=== PATIENT | male | born 1985 | race Caucasian/White ===

== ENCOUNTER 2018-06-07 16:39 | Emergency (ER) | payer OTHER ==
[~2018-06-07] VITALS: Ht 152.4 cm; Wt 70.3 kg
[~2018-06-07 16:39] MED LIST: PANT40TA2 PO
--- NOTE | 2018-06-07 17:23 | NUR ---
PT PRESENTED TO THE ER WITH A C/O ABD PAIN, N/V MULT TIMES TODAY, AND DIARRHEA X 1 DAY. PT'S FAMILY MEMBER IS AT THE BEDSIDE. 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 PT IS ON [place] MONITOR AND CONTINUOUS PULSE OX.
[2018-06-07] MEDS ORDERED: FAMOTIDINE/PF INJ 20 MG/2 ML VIAL IV ONE ×2 (17:30→17:40)
[2018-06-07] MEDS ORDERED: KETOROLAC TROMETHAMINE INJ 30 MG/ML VIAL IV ONE (17:30)
[2018-06-07] MEDS ORDERED: ONDANSETRON HCL/PF 4 MG/2 ML VIAL IVP ONE (17:30)
[2018-06-07] MEDS ORDERED: MORPHINE SULFATE INJ 2 MG/ML DISP.SYRIN IV ONE (17:30)
[2018-06-07] MEDS ORDERED: IV NS 0.9% 1,000 ML BAG IV ONE (17:30)
[2018-06-07 17:40] LABS: BASOPHILS % (AUTO) 0.5 % (0.0-2.0); EOSINOPHILS % (AUTO) 0.5 % (0.0-6.0); HEMATOCRIT 44 % (39-51); HEMOGLOBIN 14.7 g/dL (13.5-17.5); LYMPHOCYTES # (AUTO) 1.1 /CMM (0.8-4.8); LYMPHOCYTES % (AUTO) 12.4 % (20.0-44.0); MEAN CORPUSCULAR HGB CONC 33 g/dl (31.0-36.0); MEAN CORPUSCULAR VOLUME 89 fL (80-96); MONOCYTES # (AUTO) 0.7 /CMM (0.1-1.30); NEUTROPHILS # (AUTO) 7.1 /CMM (1.8-8.9); NEUTROPHILS % (AUTO) 78.6 % (43.0-81.0); PLATELET COUNT (AUTO) 294 /CMM (150-450); RED BLOOD CELL COUNT(AUTO) 5.01 MIL/uL (4.5-6.0)
[2018-06-07] MEDS ORDERED: ONDANSETRON HCL/PF 4 MG/2 ML VIAL ONE (17:40)
[2018-06-07] MEDS ORDERED: KETOROLAC TROMETHAMINE 15 MG/ML VIAL ONE (17:40)
[2018-06-07] MEDS ORDERED: MORPHINE SULFATE INJ 4 MG/ML DISP.SYRIN ONE (17:40)
[2018-06-07 17:47] LABS: CALCIUM, SERUM 9.4 mg/dL (8.5-10.1); POTASSIUM 3.4 mmol/L (3.5-5.1)
[2018-06-07 17:53] LABS: ALBUMIN 4.3 g/dL (3.4-5.0); BILIRUBIN,DIRECT 0.2 mg/dL (0.0-0.2); BILIRUBIN,TOTAL 0.8 mg/dL (0.2-1.0); TOTAL PROTEIN, SERUM 7.5 g/dL (6.4-8.2)
--- NOTE | 2018-06-07 18:19 | NUR ---
PT REC'D A URINAL AND IS TRYING TO GIVE A SAMPLE.
--- NOTE | 2018-06-07 18:25 | NUR ---
Albert SULTANA PA-C IS AT THE BEDSIDE SPEAKING TO THE PT.
--- NOTE | 2018-06-07 18:36 | NUR ---
IV removed. Catheter intact and site benign. Pressure and 4x4 applied to site. No bleeding noted. Patient discharged to home in stable condition. Written and verbal after care instructions given. Patient verbalizes understanding of instruction. PT REC'D AN EXCUSE FOR WORK. PT AMBULATED OUT WITH A STEADY GAIT. VSS. PT'S FAMILY MEMBER IS DRIVING PT HOME.
[2018-06-07 18:38] VITALS: BP 124/71
== END 2018-06-07 18:39 | disposition home or self-care (01) ==
LOC: ER 16:47
DX: K27.9 Peptic ulcer, site unspecified, unspecified as acute or chronic, without hemorrhage or perforation (principal); R10.13 Epigastric pain; R11.2 Nausea with vomiting, unspecified
CPT/HCPCS: 36415; 80048; 80076; 83690; 85025; 96361; 96374; 96375; 99283; A4606; J1885; J2270; J2405; J3490; J7030; Z7610

== ENCOUNTER 2018-07-22 02:29 | Emergency (ER) | payer OTHER ==
[~2018-07-22] VITALS: Ht 180.3 cm; Wt 70.3 kg
--- NOTE | 2018-07-22 02:57 | NUR ---
PT BIBSELF C/O LEFT UPPER ABDOMINAL PAIN X4 DAYS. ALSO C/O NAUSEA AND VOMITTING. PT DENIES SOB, CHEST PAIN, HEADACHE, DIZZINESS, FEVER. PT AAOX4. RESPIRATIONS EVEN AND UNLABORED. SKIN WARM AND INTACT. PT APPEARS UNCOMFORTABLE. PLACED ON MONTIOR, WILL CONTINUE TO MONITOR
[2018-07-22] MEDS ORDERED: MAG HYDROX/AL HYDROX/SIMETH 30 ML UDC PO ONE (03:30)
[2018-07-22] MEDS ORDERED: LIDOCAINE VISCOUS 2% UD 15 ML UDC MM ONE (03:30)
[2018-07-22] MEDS ORDERED: IV NS 0.9% 1,000 ML BAG IV ONE ×2 (03:30→05:00)
[2018-07-22] MEDS ORDERED: ONDANSETRON HCL/PF 4 MG/2 ML VIAL IVP ONE (03:30)
[2018-07-22] MEDS ORDERED: FAMOTIDINE/PF INJ 20 MG/2 ML VIAL IV ONE ×2 (03:30→03:40)
--- NOTE | 2018-07-22 03:32 | NUR ---
IV INITIATED RIGHT AC 18G. LABS DRAWN FROM SITE. CHOIRMASTER AT BEDSIDE FOR COLLECTION. IV INTACT AND PATENT, PLACED ON SALINE LOCK
[2018-07-22 03:36] LABS: BASOPHILS % (AUTO) 0.2 % (0.0-2.0); EOSINOPHILS % (AUTO) 0.3 % (0.0-6.0); HEMATOCRIT 48 % (39-51); HEMOGLOBIN 16.1 g/dL (13.5-17.5); LYMPHOCYTES # (AUTO) 0.9 /CMM (0.8-4.8); LYMPHOCYTES % (AUTO) 8.3 % (20.0-44.0); MEAN CORPUSCULAR HGB CONC 34 g/dl (31.0-36.0); MEAN CORPUSCULAR VOLUME 87 fL (80-96); MONOCYTES % (AUTO) 8.5 % (2.0-12.0); NEUTROPHILS # (AUTO) 9.4 /CMM (1.8-8.9); NEUTROPHILS % (AUTO) 82.7 % (43.0-81.0); PLATELET COUNT (AUTO) 300 /CMM (150-450); RED BLOOD CELL COUNT(AUTO) 5.46 MIL/uL (4.5-6.0); WHITE BLOOD COUNT (AUTO) 11.4 K/uL (4.3-11.0)
[2018-07-22] MEDS ORDERED: LIDOCAINE VISCOUS 2% UD 15 ML UDC ONE (03:40)
[2018-07-22] MEDS ORDERED: ONDANSETRON HCL/PF 4 MG/2 ML VIAL ONE ×2 (03:40→04:24)
[2018-07-22] MEDS ORDERED: MAG HYDROX/AL HYDROX/SIMETH 30 ML UDC ONE (03:40)
[2018-07-22 03:46] LABS: CALCIUM, SERUM 10.1 mg/dL (8.5-10.1); CREATININE 1.2 mg/dL (0.6-1.3); POTASSIUM 3.8 mmol/L (3.5-5.1)
[2018-07-22 03:52] LABS: ALBUMIN 4.5 g/dL (3.4-5.0); BILIRUBIN,DIRECT 0.1 mg/dL (0.0-0.2); BILIRUBIN,TOTAL 0.6 mg/dL (0.2-1.0); TOTAL PROTEIN, SERUM 8.4 g/dL (6.4-8.2)
[2018-07-22] MEDS ORDERED: LORAZEPAM INJ 2 MG/ML VIAL ONE (03:54)
[2018-07-22] MEDS ORDERED: LORAZEPAM INJ 2 MG/ML VIAL IV ONE (04:00)
[2018-07-22] MEDS ORDERED: ONDANSETRON HCL/PF - ER 4 MG/2 ML VIAL IV ONE (04:30)
[2018-07-22] MEDS ORDERED: IOHEXOL-300 100 ML VIAL IV ONE (04:50)
[2018-07-22] MEDS ORDERED: IV NS 0.9% 250 ML IV ONE (04:51)
[2018-07-22] MEDS ORDERED: CT SWABBABLE VALVE TRANS SET 1 EA INFUS.SET MC ONE (04:51)
[2018-07-22] MEDS ORDERED: METOCLOPRAMIDE HCL 10 MG/2 ML VIAL ONE (05:17)
[2018-07-22] MEDS ORDERED: METOCLOPRAMIDE HCL 10 MG/2 ML VIAL IV ONE (05:30)
--- NOTE | 2018-07-22 05:45 | NUR ---
PT RETURNED FROM CT
--- NOTE | 2018-07-22 07:11 | NUR ---
SPOKE WITH SALUD FROM [facility], STATES SHE WILL CALL BACK WITH TRANSFER INFORMATION
--- NOTE | 2018-07-22 07:32 | NUR ---
Patient discharged to home in stable condition. Written and verbal after care instructions given. Patient verbalizes understanding of instruction. IV removed. Catheter intact and site benign. Pressure and 4x4 applied to site. No bleeding noted. Pt ambulatory with steady gait
[2018-07-22 07:34] VITALS: BP 139/86
== END 2018-07-22 07:35 | disposition home or self-care (01) ==
LOC: ER 02:31
DX: R11.2 Nausea with vomiting, unspecified (principal); R10.13 Epigastric pain
CPT/HCPCS: 36415; 74177; 80048; 80076; 83690; 85025; 96361; 96374; 96375; 96376; 99284; A4606; J2060; J2405 ×3; J2765; J3490; J7030 ×2; J7050; Q9967

== ENCOUNTER 2018-08-24 16:19 | Emergency (ER) | payer OTHER ==
[~2018-08-24] VITALS: Ht 180.3 cm; Wt 69.4 kg
--- NOTE | 2018-08-24 16:20 | NUR ---
CAME IN FOR ABDOMINAL PAIN AND VOMITING X 3 TODAY. TO ER BED 2, HOOKED TO MONITOR, CHANGED TO GOWN, PROVIDED W WARM BLANKET, AWAITING MD TAM.
--- NOTE | 2018-08-24 16:35 | NUR ---
DR REZA AT BEDSIDE
[2018-08-24] MEDS ORDERED: HALOPERIDOL LACTATE INJ 5 MG/ML VIAL ONE (16:47)
[2018-08-24] MEDS ORDERED: MAG HYDROX/AL HYDROX/SIMETH 30 ML UDC ONE (16:48)
[2018-08-24] MEDS ORDERED: LIDOCAINE VISCOUS 2% UD 15 ML UDC ONE (16:48)
[2018-08-24] MEDS ORDERED: ONDANSETRON 4 MG TAB.RAPDIS ONE (16:48)
[2018-08-24 16:49] LABS: BASOPHILS % (AUTO) 0.5 % (0.0-2.0); EOSINOPHILS % (AUTO) 0.6 % (0.0-6.0); HEMATOCRIT 50 % (39-51); HEMOGLOBIN 16.8 g/dL (13.5-17.5); LYMPHOCYTES # (AUTO) 1.6 /CMM (0.8-4.8); LYMPHOCYTES % (AUTO) 18.7 % (20.0-44.0); MEAN CORPUSCULAR HGB CONC 34 g/dl (31.0-36.0); MEAN CORPUSCULAR VOLUME 89 fL (80-96); MONOCYTES # (AUTO) 0.8 /CMM (0.1-1.30); NEUTROPHILS # (AUTO) 5.8 /CMM (1.8-8.9); NEUTROPHILS % (AUTO) 70.2 % (43.0-81.0); PLATELET COUNT (AUTO) 348 /CMM (150-450); RED BLOOD CELL COUNT(AUTO) 5.61 MIL/uL (4.5-6.0); WHITE BLOOD COUNT (AUTO) 8.3 K/uL (4.3-11.0)
[2018-08-24] MEDS ORDERED: ONDANSETRON 4 MG TAB.RAPDIS SL ONE (17:00)
[2018-08-24] MEDS ORDERED: LIDOCAINE VISCOUS 2% UD 15 ML UDC MM ONE (17:00)
[2018-08-24] MEDS ORDERED: HALOPERIDOL LACTATE INJ 5 MG/ML VIAL IM ONE (17:00)
[2018-08-24] MEDS ORDERED: MAG HYDROX/AL HYDROX/SIMETH 30 ML UDC PO ONE (17:00)
[2018-08-24 17:02] LABS: CALCIUM, SERUM 9.6 mg/dL (8.5-10.1); CREATININE 1.2 mg/dL (0.6-1.3); POTASSIUM 4.1 mmol/L (3.5-5.1)
[2018-08-24 17:09] LABS: ALBUMIN 5.1 g/dL (3.4-5.0); BILIRUBIN,DIRECT 0.1 mg/dL (0.0-0.2); BILIRUBIN,TOTAL 0.6 mg/dL (0.2-1.0); TOTAL PROTEIN, SERUM 9.1 g/dL (6.4-8.2)
--- NOTE | 2018-08-24 17:38 | NUR ---
IV removed. Catheter intact and site benign. Pressure and 4x4 applied to site. No bleeding noted.Patient discharged to home in stable condition. Written and verbal after care instructions given. Patient verbalizes understanding of instruction.
[2018-08-24 17:42] VITALS: BP 120/68
== END 2018-08-24 17:43 | disposition home or self-care (01) ==
LOC: ER 16:22
DX: R10.13 Epigastric pain (principal); R11.2 Nausea with vomiting, unspecified
CPT/HCPCS: 36415; 80048; 80076; 83690; 85025; 96372; 99283; J1630; Q0162

== ENCOUNTER 2022-06-13 11:47 | Emergency (ER) | payer OTHER ==
[~2022-06-13] VITALS: Ht 180.3 cm; Wt 90.7 kg
--- NOTE | 2022-06-13 12:33 | NUR ---
PT WALKED INTO ER C/O ABDOMINAL PAIN WITH NAUSEA AND VOMITING "ON AND OFF" X 2 WEEKS. PT AMBULATED TO BED WITH STEADY GAIT. AAOX4. VSS. AWAITING MD ORDERS.
--- NOTE | 2022-06-13 12:35 | NUR ---
ESTABLISHED IV ACCESS 18G LEFT AC. BLOOD DRAWN SENT TO LAB.
[2022-06-13] MEDS ORDERED: ONDANSETRON HCL/PF 4 MG/2 ML VIAL ONE (12:48)
--- NOTE | 2022-06-13 12:57 | NUR ---
TAKEN TO CT VIA DANIS
[2022-06-13] MEDS ORDERED: ONDANSETRON HCL/PF 4 MG/2 ML VIAL IVP ONE (13:00)
[2022-06-13] MEDS ORDERED: IV NS 0.9% 1,000 ML BAG IV ONE (13:00)
[2022-06-13 13:02] LABS: BASOPHILS % (AUTO) 0.4 % (0.0-2.0); HEMATOCRIT 44 % (39-51); HEMOGLOBIN 14.4 g/dL (13.5-17.5); LYMPHOCYTES # (AUTO) 1.3 K/uL (0.8-4.8); LYMPHOCYTES % (AUTO) 16.5 % (20.0-44.0); MEAN CORPUSCULAR HGB CONC 33 g/dl (31.0-36.0); MEAN CORPUSCULAR VOLUME 89 fL (80-96); MONOCYTES # (AUTO) 0.5 K/uL (0.1-1.30); MONOCYTES % (AUTO) 6.1 % (2.0-12.0); NEUTROPHILS # (AUTO) 5.8 K/uL (1.8-8.9); PLATELET COUNT (AUTO) 320 K/uL (150-450); WHITE BLOOD COUNT (AUTO) 7.7 K/uL (4.3-11.0)
--- NOTE | 2022-06-13 13:05 | NUR ---
PT AMBULATED TO REST ROOM TO GIVE URINE SAMPLE.
--- NOTE | 2022-06-13 13:09 | NUR ---
URINE SAMPLE COLLECTED AND SENT TO LAB.
[2022-06-13 13:21] LABS: CALCIUM, SERUM 9.3 mg/dL (8.5-10.1); CREATININE 1.1 mg/dL (0.6-1.3); POTASSIUM 3.3 mmol/L (3.5-5.1)
[2022-06-13 13:27] LABS: ALBUMIN 4.2 g/dL (3.4-5.0); BILIRUBIN,DIRECT 0.1 mg/dL (0.0-0.2); BILIRUBIN,TOTAL 0.4 mg/dL (0.2-1.0); TOTAL PROTEIN, SERUM 7.5 g/dL (6.4-8.2)
--- NOTE | 2022-06-13 13:46 | NUR ---
PT STATES "I FEEL MUCH BETTER. NO MORE NAUSEA."
[2022-06-13] MEDS ORDERED: ONDA4TAB5 PO (13:53)
--- NOTE | 2022-06-13 14:05 | NUR ---
Patient discharged to home in stable condition. Written and verbal after care instructions given. Patient verbalizes understanding of instruction.IV removed. Catheter intact and site benign. Pressure and 4x4 applied to site. No bleeding noted.
[2022-06-13 14:12] VITALS: BP 120/77
[2022-06-13 14:38] LABS: BILIRUBIN,URINE NEGATIVE (NEGATIVE); COLOR,URINE YELLOW (YELLOW); LEUKOCYTE ESTERASE ,URINE NEGATIVE (NEGATIVE); NITRITE, URINE NEGATIVE (NEGATIVE); PROTEIN,URINE NEGATIVE (NEGATIVE); UGLUCOSE NEGATIVE (NEGATIVE); UROBILINOGEN,URINE 0.2 EU/dL (0.2)
== END 2022-06-13 14:12 | disposition home or self-care (01) ==
LOC: ER 11:48
DX: R11.2 Nausea with vomiting, unspecified (principal); F17.200 Nicotine dependence, unspecified, uncomplicated; Z79.899 Other long term (current) drug therapy
CPT/HCPCS: 99285; 74176; 96374; 96361; 85025; 80048; 83690; 80076; 81003; 36415; J2405; J7030

== ENCOUNTER 2023-01-03 00:11 | Emergency (ER) | payer OTHER ==
[~2023-01-03] VITALS: Ht 180.3 cm; Wt 68.0 kg
[~2023-01-03 00:11] MED LIST changes: +ONDA4TAB5 PO
[2023-01-03] MEDS ORDERED: FLUORESCEIN SODIUM OPHTH 1 EA STRIP ONE (00:32)
[2023-01-03 00:34] VITALS: BP 123/76; TEMP 98.2; O2SAT 98
[2023-01-03] MEDS ORDERED: ERYT3.5O9 EACHEYE (00:49)
[2023-01-03] MEDS ORDERED: MORP15TA PO (00:49)
[2023-01-03] MEDS ORDERED: NABU-141 PO (00:49)
[2023-01-03] MEDS ORDERED: HYDROCODONE/APAP 5/325MG TABLET ONE (00:54)
[2023-01-03] MEDS ORDERED: ERYTHROMYCIN BASE OPHTH 3.5 GM TUBE ONE (00:54)
[2023-01-03] MEDS ORDERED: HYDROCODONE/APAP 5/325MG TABLET PO ONE (01:00)
[2023-01-03] MEDS ORDERED: ERYTHROMYCIN BASE OPHTH 3.5 GM TUBE OP ONE (01:00)
== END 2023-01-03 01:11 | disposition home or self-care (01) ==
LOC: ER 00:13
DX: S05.02XA Injury of conjunctiva and corneal abrasion without foreign body, left eye, initial encounter (principal); S05.01XA Injury of conjunctiva and corneal abrasion without foreign body, right eye, initial encounter; F17.200 Nicotine dependence, unspecified, uncomplicated; W89.0XXA Exposure to welding light (arc), initial encounter; Y93.89 Activity, other specified; Y92.89 Other specified places as the place of occurrence of the external cause; Y99.8 Other external cause status

== ENCOUNTER 2023-01-21 20:30 | Emergency (ER) | payer OTHER ==
[~2023-01-21] VITALS: Ht 180.3 cm; Wt 63.5 kg
[~2023-01-21 20:30] MED LIST changes: +ERYT3.5O9 EACHEYE; +MORP15TA PO; +NABU-141 PO
[2023-01-21 21:34] VITALS: BP 125/71; TEMP 98.1; O2SAT 98
[2023-01-21] MEDS ORDERED: CEPH500T PO (22:17)
[2023-01-21] MEDS ORDERED: ONDA4TAB5 PO (22:17)
== END 2023-01-21 22:34 | disposition home or self-care (01) ==
LOC: ER 20:44
DX: L03.115 Cellulitis of right lower limb (principal); F17.200 Nicotine dependence, unspecified, uncomplicated; Z79.899 Other long term (current) drug therapy

== ENCOUNTER 2023-10-10 08:10 | Emergency (ER) | payer OTHER ==
[~2023-10-10] VITALS: Ht 180.3 cm; Wt 70.3 kg
[~2023-10-10 08:10] MED LIST changes: +CEPH500T PO
[2023-10-10 08:25] VITALS: BP 121/71; TEMP 98.1; O2SAT 97
[2023-10-10] MEDS ORDERED: TETRAcaine 5 ML BOTTLE ONE (08:46)
[2023-10-10] MEDS ORDERED: FLUORESCEIN SODIUM OPHTH 1 EA STRIP ONE (08:46)
[2023-10-10] MEDS ORDERED: ERYT3.5O9 RIGHTEYE (09:05)
[2023-10-10] MEDS: TETRACAINE HCL 0.5% OPHTALMIC 15 ML BOTTLE OP ONE (09:13)
[2023-10-10] MEDS: FLUORESCEIN SODIUM OPHTH 1 EA STRIP OP ONE (09:13)
== END 2023-10-10 09:48 | disposition home or self-care (01) ==
LOC: ER 08:16
DX: H57.11 Ocular pain, right eye (principal); F17.200 Nicotine dependence, unspecified, uncomplicated; Z79.899 Other long term (current) drug therapy

== ENCOUNTER 2024-08-13 14:13 | Emergency (ER) | payer OTHER ==
[~2024-08-13] VITALS: Ht 180.3 cm; Wt 71.2 kg
[~2024-08-13 14:13] MED LIST changes: +ERYT3.5O9 RIGHTEYE
[2024-08-13] MEDS ORDERED: PANTOPRAZOLE 40 MG VIAL ONE (15:15)
[2024-08-13] MEDS ORDERED: METOCLOPRAMIDE HCL 10 MG/2 ML VIAL ONE (15:15)
[2024-08-13] MEDS ORDERED: FAMOTIDINE/PF INJ 20 MG/2 ML VIAL IV ONE (15:15)
[2024-08-13 15:23] LABS: BASOPHILS % (AUTO) 0.7 % (0.0-2.0); EOSINOPHILS % (AUTO) 0.7 % (0.0-6.0); HEMATOCRIT 47 % (39-51); HEMOGLOBIN 16.1 g/dL (13.5-17.5); LYMPHOCYTES # (AUTO) 1.8 K/uL (0.8-4.8); LYMPHOCYTES % (AUTO) 25.5 % (20.0-44.0); MEAN CORPUSCULAR HEMOGLOBIN 29 PG (26.0-33.0); MEAN CORPUSCULAR HGB CONC 34 g/dl (31.0-36.0); MEAN CORPUSCULAR VOLUME 85 fL (80-96); MONOCYTES # (AUTO) 0.8 K/uL (0.1-1.30); MONOCYTES % (AUTO) 11.5 % (2.0-12.0); NEUTROPHILS # (AUTO) 4.3 K/uL (1.8-8.9); NEUTROPHILS % (AUTO) 61.6 % (43.0-81.0); PLATELET COUNT (AUTO) 318 K/uL (150-450); RED BLOOD CELL COUNT(AUTO) 5.54 MIL/uL (4.5-6.0); RED CELL DISTRIBUTION WIDTH 13.1 % (11.5-15.0)
[2024-08-13] MEDS: IV NS 0.9% 1,000 ML BAG IV ONE (15:26)
[2024-08-13 15:33] LABS: CALCIUM, SERUM 9.7 mg/dL (8.5-10.1); CREATININE 1.2 mg/dL (0.6-1.3); POTASSIUM 3.2 mmol/L (3.5-5.1)
[2024-08-13] MEDS: FAMOTIDINE/PF INJ 20 MG/2 ML VIAL IV ONE (15:36)
[2024-08-13] MEDS: METOCLOPRAMIDE HCL 10 MG/2 ML VIAL IV ONE (15:37)
[2024-08-13] MEDS: PANTOPRAZOLE 40 MG VIAL IV ONE (15:37)
[2024-08-13 15:39] LABS: ALBUMIN 4.8 g/dL (3.4-5.0); BILIRUBIN,DIRECT 0.2 mg/dL (0.0-0.2); BILIRUBIN,TOTAL 1.1 mg/dL (0.2-1.0); TOTAL PROTEIN, SERUM 8.4 g/dL (6.4-8.2)
[2024-08-13] MEDS ORDERED: POTASSIUM CHLORIDE 20 MEQ TAB.PRT.SR PO ONE (16:33)
[2024-08-13] MEDS: POTASSIUM CHLORIDE 20 MEQ TAB.PRT.SR PO ONE (16:34)
[2024-08-13] MEDS ORDERED: DICY10CA37 PO (17:02)
[2024-08-13] MEDS ORDERED: BISM-120 PO (17:02)
[2024-08-13] MEDS ORDERED: FAMO-131 PO (17:02)
[2024-08-13] MEDS ORDERED: METO-295 PO (17:02)
[2024-08-13] MEDS ORDERED: PANT40TA49 PO (17:02)
[2024-08-13 17:28] VITALS: BP 121/74; TEMP 98.3; O2SAT 75
== END 2024-08-13 17:29 | disposition home or self-care (01) ==
LOC: ER 14:17
DX: R11.2 Nausea with vomiting, unspecified (principal); R10.13 Epigastric pain; F17.200 Nicotine dependence, unspecified, uncomplicated; Z79.899 Other long term (current) drug therapy; Z87.11 Personal history of peptic ulcer disease; Z87.19 Personal history of other diseases of the digestive system
CPT/HCPCS: 99285; 96374; 96361; 96375; 85025; 80048; 83690; 80076; 36415; J1308; J2765; J7030; J2470